=== PATIENT | female | born 1950 | race Caucasian/White ===

== ENCOUNTER → 2016-08-18 | Outpatient (CLI) | payer MEDICAID | END | disposition home or self-care (01) | LOC: CFH 12:50 | PROVIDERS: ATTEND Family Medicine | DX: Z12.31 Encounter for screening mammogram for malignant neoplasm of breast (principal); Z13.820 Encounter for screening for osteoporosis; Z78.0 Asymptomatic menopausal state; M85.80 Other specified disorders of bone density and structure, unspecified site | CPT/HCPCS: 77080; G0202 ==

== ENCOUNTER → 2016-08-25 | Outpatient (CLI) | payer MEDICAID | END | disposition home or self-care (01) | LOC: CFH 13:34 | DX: M43.16 Spondylolisthesis, lumbar region (principal); M48.06 Spinal stenosis, lumbar region | CPT/HCPCS: 72148 ==

== ENCOUNTER → 2016-09-24 | Outpatient (CLI) | payer MEDICAID ==
[~2016-09-24] MED LIST: DICL25TA PO; GABA300C10 PO; LISI2.5T PO
[2016-09-24 12:12] LABS: BLOOD UREA NITROGEN 28 mg/dL (7-18)
[2016-09-24 12:15] LABS: ASPARTATE AMINO TRANSFERASE 24 U/L (15-37)
== END | disposition home or self-care (01) ==
LOC: STAR 11:05
PROVIDERS: ATTEND Orthopaedic Surgery
DX: Z01.818 Encounter for other preprocedural examination (principal); M19.072 Primary osteoarthritis, left ankle and foot; M20.42 Other hammer toe(s) (acquired), left foot
CPT/HCPCS: 36415; 80053; 93005

== ENCOUNTER 2016-10-10 12:43 | Day surgery (SDC) | payer MEDICAID ==
[~2016-10-10] VITALS: Ht 152.4 cm; Wt 46.0 kg
[~2016-10-10 12:43] MED LIST changes: +CEFAZOLIN 1,000 MG ONE; +DEXAMETHASONE 4 MG/ML, 1ML ONE; +ONDANSETRON 2MG/ML, 2ML ONE; +PROPOFOL 10 MG/ML, 20ML ONE
[2016-10-10 13:50] VITALS: BP 145/84
[2016-10-10 13:54] VITALS: BP 145/84
[2016-10-10 14:00] LABS: DAU SCREEN DISCLAIMER
[2016-10-10] MEDS ORDERED: MIDAZOLAM 1 MG/ML, 2ML ONE (14:13)
[2016-10-10] MEDS ORDERED: FENTANYL PF 100 MCG/2ML ONE (14:13)
[2016-10-10] MEDS ORDERED: LACTATED RINGERS 1,000 ML IV SCH (14:18)
[2016-10-10] MEDS ORDERED: LIDOCAINE 1%, 2ML SQ PRN (14:30)
[2016-10-10] MEDS ORDERED: ROPIvacaine/PF 0.5%, 30 ML ONE (15:28)
[2016-10-10] MEDS ORDERED: ACETAMINOPHEN 325 MG TABLET PO PRN (17:30)
[2016-10-10] MEDS ORDERED: HYDROmorphone 1 MG/ML, 1ML IV PRN (17:30)
[2016-10-10] MEDS ORDERED: FENTANYL PF 100 MCG/2ML IV PRN (17:30)
[2016-10-10] MEDS ORDERED: PROMETHAZINE 25 MG/ML, 1ML IV PRN (17:30)
[2016-10-10] MEDS ORDERED: OXYcodone 5 MG/5 ML ORAL.SOL UDC PO PRN (17:30)
[2016-10-10] MEDS ORDERED: OXYcodone 5 MG/5 ML ORAL.SOL UDC ONE (18:04)
[2016-10-10] MEDS ORDERED: ACETAMINOPHEN 650 MG/20.3 ML UDC ONE (18:04)
== END 2016-10-10 20:00 ==
LOC: OUT 12:43
PROVIDERS: ATTEND Orthopaedic Surgery
DX: M20.42 Other hammer toe(s) (acquired), left foot (principal); M20.12 Hallux valgus (acquired), left foot; M77.42 Metatarsalgia, left foot; M24.575 Contracture, left foot; G89.29 Other chronic pain; I10 Essential (primary) hypertension; Z87.39 Personal history of other diseases of the musculoskeletal system and connective tissue; Z72.89 Other problems related to lifestyle
CPT/HCPCS: 28285; 28296; 28308; 28750; 73620; 76000; 80307; C1713; C1769; J0690; J1100; J2250; J2405; J2704; J2795; J3010; J7120

== ENCOUNTER 2016-10-20 17:46 | Emergency (ER) | payer MEDICAID ==
[~2016-10-20] VITALS: Ht 157.5 cm; Wt 50.0 kg
[~2016-10-20 17:46] MED LIST changes: -CEFAZOLIN 1,000 MG ONE; -DEXAMETHASONE 4 MG/ML, 1ML ONE; -ONDANSETRON 2MG/ML, 2ML ONE; -PROPOFOL 10 MG/ML, 20ML ONE
[2016-10-20] MEDS ORDERED: KETOROLAC 30 MG/1 ML IM ONE (18:00)
[2016-10-20] MEDS ORDERED: KETOROLAC 30 MG/1 ML ONE (18:07)
[2016-10-20] MEDS ORDERED: PLEASE ENTER HEIGHT AND WEIGHT MC SCH (18:30)
[2016-10-20 18:32] LABS: HEMATOCRIT 31.8 % (34.6-47.8); HEMOGLOBIN 10.6 g/dL (11.7-16.4); WHITE BLOOD COUNT 9.6 x10^3/uL (3.4-10)
[2016-10-20 18:45] LABS: BLOOD UREA NITROGEN 26 mg/dL (7-18)
[2016-10-20 18:51] LABS: IS PT STATUS REG ER OR PRE ER? YES
[2016-10-20 19:03] LABS: PATH.CAST-FLAG NOT PRESENT; SPERM-FLAG NOT PRESENT; SRC-FLAG NOT PRESENT; XTAL-FLAG NOT PRESENT; YLC-FLAG NOT PRESENT
[2016-10-20 20:10] VITALS: BP 114/72
[2016-10-21] MEDS ORDERED: OXYC-302 PO (04:20)
== END 2016-10-20 20:12 | disposition home or self-care (01) ==
LOC: ED 19:30
DX: R07.89 Other chest pain (principal); M54.5 Low back pain; I10 Essential (primary) hypertension; Z87.891 Personal history of nicotine dependence
CPT/HCPCS: 36415; 71010; 80048; 81001; 82040; 84484; 85025; 93005; 96372; 99285; J1885

== ENCOUNTER 2016-10-21 01:38 | Inpatient (IN) | payer MEDICAID ==
[~2016-10-21] VITALS: Ht 152.4 cm; Wt 59.0 kg
[2016-10-21] MEDS ORDERED: SODIUM CHLORIDE FLUSH 10ML SYR IVF ONE (02:00)
[2016-10-21] MEDS ORDERED: SODIUM CHLORIDE 0.9% 1,000ML IVBOLUS ONE ×2 (02:00→03:30)
[2016-10-21] MEDS ORDERED: OMNIPAQUE 350 MG/ML, 100ML BOTTLE ONE (02:23)
[2016-10-21] MEDS ORDERED: LEVOFLOXACIN/PMX 750MG/150ML 150 ML IV ONE (03:30)
[2016-10-21] MEDS ORDERED: METRONIDAZOLE PMX 500MG/100ML 100 ML IV ONE (03:30)
[2016-10-21] MEDS ORDERED: METRONIDAZOLE PMX 500MG/100ML 100 ML ONE (04:13)
[2016-10-21] MEDS ORDERED: OXYC-302 PO (04:20)
[2016-10-21 04:43] LABS: HEMATOCRIT 32.2 % (34.6-47.8); HEMOGLOBIN 10.6 g/dL (11.7-16.4)
[2016-10-21 04:45] LABS: BLOOD UREA NITROGEN 38 mg/dL (7-18)
[2016-10-21 05:00] VITALS: BP 127/78
[2016-10-21] MEDS ORDERED: ZOLPIDEM 5MG TABLET PO PRN (05:00)
[2016-10-21] MEDS ORDERED: BISACODYL 10 MG SUPP PR PRN (05:00)
[2016-10-21] MEDS ORDERED: MAGNESIUM CITRATE 300ML ORAL SOL PO ONE (05:00)
[2016-10-21] MEDS: LACTOBACILLUS CHEW TABLET PO SCH ×4 (05:30→21:11)
[2016-10-21] MEDS: SODIUM CHLORIDE 0.9% 1,000 ML IV SCH ×2 (06:44→18:16)
[2016-10-21] MEDS: CEFTRIAXONE PMX 1GM/50ML 50 ML IV SCH (06:45)
[2016-10-21 07:55] VITALS: BP 137/68
[2016-10-21] MEDS: morphine SULFATE 10 MG/ML, 1ML IVPush PRN ×3 (08:00→21:13)
[2016-10-21] MEDS: METHYLNALTREXONE 12 MG/0.6 ML SQ SCH ×2 (09:00→15:46)
[2016-10-21] MEDS: DOCUSATE 100 MG CAPSULE PO SCH ×2 (11:39→21:00)
[2016-10-21] MEDS: POLYETHYLENE GLYCOL 17 GM PACKET PO SCH (11:40)
[2016-10-21] MEDS: HEPARIN 5,000 UNITS/ML, 1ML SQ SCH ×2 (11:41→20:15)
[2016-10-21] MEDS: METRONIDAZOLE PMX 500MG/100ML 100 ML IV SCH ×2 (11:47→20:15)
[2016-10-21] MEDS ORDERED: OXYcodone/APAP 5/325MG TABLET PO SCH (12:30)
[2016-10-21] MEDS: OXYcodone IR 5MG TABLET PO PRN ×2 (13:42→18:15)
[2016-10-21 14:07] VITALS: BP 109/66
[2016-10-21 20:07] VITALS: BP 115/67
[2016-10-21] MEDS: OXYcodone/APAP 5/325MG TABLET PO PRN (22:49)
[2016-10-22 00:53] VITALS: BP 127/67
[2016-10-22] MEDS: morphine SULFATE 10 MG/ML, 1ML IVPush PRN ×3 (01:33→02:08)
[2016-10-22] MEDS: HEPARIN 5,000 UNITS/ML, 1ML SQ SCH ×3 (03:59→20:37)
[2016-10-22] MEDS: SODIUM CHLORIDE 0.9% 1,000 ML IV SCH ×2 (03:59→17:16)
[2016-10-22] MEDS: METRONIDAZOLE PMX 500MG/100ML 100 ML IV SCH ×3 (03:59→19:56)
[2016-10-22] MEDS: OXYcodone/APAP 5/325MG TABLET PO PRN ×5 (04:03→23:41)
[2016-10-22 06:04] LABS: HEMATOCRIT 24.6 % (34.6-47.8); HEMOGLOBIN 8.4 g/dL (11.7-16.4); WHITE BLOOD COUNT 11.8 x10^3/uL (3.4-10)
[2016-10-22 06:09] LABS: ASPARTATE AMINO TRANSFERASE 21 U/L (15-37); BLOOD UREA NITROGEN 17 mg/dL (7-18)
[2016-10-22 07:35] VITALS: BP 95/57
[2016-10-22] MEDS: CEFTRIAXONE PMX 1GM/50ML 50 ML IV SCH (08:07)
[2016-10-22] MEDS: DOCUSATE 100 MG CAPSULE PO SCH ×2 (08:08→20:35)
[2016-10-22] MEDS: POLYETHYLENE GLYCOL 17 GM PACKET PO SCH (08:08)
[2016-10-22] MEDS: LACTOBACILLUS CHEW TABLET PO SCH ×3 (08:08→20:37)
[2016-10-22] MEDS: ONDANSETRON 2MG/ML, 2ML IVPush PRN ×2 (09:47→17:25)
[2016-10-22 12:37] VITALS: BP 121/79
[2016-10-22 12:42] VITALS: BP 133/63
[2016-10-22 18:48] VITALS: BP 121/73
[2016-10-23 00:32] VITALS: BP 107/67
[2016-10-23] MEDS: SODIUM CHLORIDE 0.9% 1,000 ML IV SCH ×2 (03:00→13:00)
[2016-10-23] MEDS: OXYcodone/APAP 5/325MG TABLET PO PRN ×3 (03:30→15:11)
[2016-10-23] MEDS: METRONIDAZOLE PMX 500MG/100ML 100 ML IV SCH ×3 (04:00→20:24)
[2016-10-23] MEDS: HEPARIN 5,000 UNITS/ML, 1ML SQ SCH ×3 (04:00→20:24)
[2016-10-23] MEDS: ONDANSETRON 2MG/ML, 2ML IVPush PRN ×2 (04:10→10:19)
[2016-10-23 05:12] LABS: HEMATOCRIT 23.2 % (34.6-47.8); HEMOGLOBIN 7.6 g/dL (11.7-16.4); WHITE BLOOD COUNT 11.3 x10^3/uL (3.4-10)
[2016-10-23 05:29] LABS: BLOOD UREA NITROGEN 9 mg/dL (7-18)
[2016-10-23 07:24] VITALS: BP 122/76
[2016-10-23] MEDS: POLYETHYLENE GLYCOL 17 GM PACKET PO SCH (07:51)
[2016-10-23] MEDS: DOCUSATE 100 MG CAPSULE PO SCH ×2 (07:52→20:25)
[2016-10-23] MEDS: CEFTRIAXONE PMX 1GM/50ML 50 ML IV SCH (07:52)
[2016-10-23] MEDS: LACTOBACILLUS CHEW TABLET PO SCH ×3 (07:52→20:25)
[2016-10-23 14:12] VITALS: BP 131/75
[2016-10-23] MEDS ORDERED: PROMETHAZINE 25 MG/ML, 1ML IM PRN (16:00)
[2016-10-23] MEDS: METHYLNALTREXONE 12 MG/0.6 ML SQ SCH (20:24)
[2016-10-23 20:48] VITALS: BP 174/77
[2016-10-23] MEDS: morphine SULFATE 10 MG/ML, 1ML IVPush PRN (22:21)
[2016-10-24] MEDS: morphine SULFATE 10 MG/ML, 1ML IVPush PRN ×2 (02:29→11:54)
[2016-10-24 02:30] VITALS: BP 162/87
[2016-10-24] MEDS: SODIUM CHLORIDE 0.9% 1,000 ML IV SCH ×2 (04:13→15:00)
[2016-10-24] MEDS: METRONIDAZOLE PMX 500MG/100ML 100 ML IV SCH ×4 (04:13→22:54)
[2016-10-24] MEDS: HEPARIN 5,000 UNITS/ML, 1ML SQ SCH ×3 (04:13→20:36)
[2016-10-24 04:37] LABS: HEMATOCRIT 23.4 % (34.6-47.8); HEMOGLOBIN 7.9 g/dL (11.7-16.4); WHITE BLOOD COUNT 9.7 x10^3/uL (3.4-10)
[2016-10-24 04:48] LABS: BLOOD UREA NITROGEN 6 mg/dL (7-18)
[2016-10-24] MEDS: ONDANSETRON 2MG/ML, 2ML IVPush PRN (05:52)
[2016-10-24] MEDS ORDERED: POTASSIUM CHLORIDE 20 MEQ TAB.ER.PRT PO ONE (07:00)
[2016-10-24] MEDS ORDERED: POTASSIUM CHLORIDE 40 MEQ in SODIUM CHLORIDE 0.9% 500 ML IV ONE (07:30)
[2016-10-24 07:46] VITALS: BP 165/87
[2016-10-24] MEDS: LACTOBACILLUS CHEW TABLET PO SCH ×4 (08:25→20:36)
[2016-10-24] MEDS: DOCUSATE 100 MG CAPSULE PO SCH ×2 (08:25→20:36)
[2016-10-24] MEDS: POLYETHYLENE GLYCOL 17 GM PACKET PO SCH (08:25)
[2016-10-24] MEDS: CEFTRIAXONE PMX 1GM/50ML 50 ML IV SCH (08:25)
[2016-10-24] MEDS ORDERED: ONDANSETRON 2MG/ML, 2ML IVPush PRN (11:00)
[2016-10-24] MEDS: PANTOPRAZOLE 40 MG IV IVPush SCH ×2 (11:14→22:56)
[2016-10-24 14:14] LABS: FERRITIN 543.9 ng/mL (8-252)
[2016-10-24 14:34] VITALS: BP 152/72
[2016-10-24] MEDS ORDERED: MAGNESIUM SULFATE PMX 4GM/100M 100 ML IV ONE (16:30)
[2016-10-24 20:10] VITALS: BP 147/82
[2016-10-25 00:55] VITALS: BP 155/92
[2016-10-25] MEDS: SODIUM CHLORIDE 0.9% 1,000 ML IV SCH ×3 (04:08→19:17)
[2016-10-25] MEDS: HEPARIN 5,000 UNITS/ML, 1ML SQ SCH ×3 (04:16→20:57)
[2016-10-25 05:32] LABS: HEMATOCRIT 26.4 % (34.6-47.8); HEMOGLOBIN 8.9 g/dL (11.7-16.4); WHITE BLOOD COUNT 8.7 x10^3/uL (3.4-10)
[2016-10-25 05:55] LABS: BLOOD UREA NITROGEN 4 mg/dL (7-18)
[2016-10-25] MEDS: METRONIDAZOLE PMX 500MG/100ML 100 ML IV SCH ×3 (06:25→23:49)
[2016-10-25] MEDS: DOCUSATE 100 MG CAPSULE PO SCH ×2 (07:26→20:58)
[2016-10-25] MEDS: POLYETHYLENE GLYCOL 17 GM PACKET PO SCH ×2 (07:26→21:08)
[2016-10-25] MEDS: LACTOBACILLUS CHEW TABLET PO SCH ×3 (07:26→20:58)
[2016-10-25] MEDS: CEFTRIAXONE PMX 1GM/50ML 50 ML IV SCH (08:05)
[2016-10-25 08:09] VITALS: BP 145/77
[2016-10-25] MEDS ORDERED: FENTANYL PF 100 MCG/2ML ONE (08:39)
[2016-10-25] MEDS ORDERED: MIDAZOLAM 1 MG/ML, 5ML ONE (08:39)
[2016-10-25] MEDS: PANTOPRAZOLE 40 MG IV IVPush SCH ×2 (11:21→23:49)
[2016-10-25 14:21] VITALS: BP 138/82
[2016-10-25] MEDS: OXYcodone/APAP 5/325MG TABLET PO PRN ×2 (16:43→23:48)
[2016-10-25] MEDS: METHYLNALTREXONE 12 MG/0.6 ML SQ SCH (21:04)
[2016-10-25 22:00] VITALS: BP 174/85
[2016-10-26 03:26] VITALS: BP 124/71
[2016-10-26] MEDS: HEPARIN 5,000 UNITS/ML, 1ML SQ SCH ×2 (04:26→11:36)
[2016-10-26] MEDS: SODIUM CHLORIDE 0.9% 1,000 ML IV SCH (06:12)
[2016-10-26] MEDS: METRONIDAZOLE PMX 500MG/100ML 100 ML IV SCH ×2 (06:12→14:27)
[2016-10-26] MEDS: OXYcodone/APAP 5/325MG TABLET PO PRN ×2 (06:35→11:36)
[2016-10-26 07:42] VITALS: BP 152/92
[2016-10-26] MEDS: DOCUSATE 100 MG CAPSULE PO SCH (08:00)
[2016-10-26] MEDS: LACTOBACILLUS CHEW TABLET PO SCH (08:00)
[2016-10-26] MEDS: CEFTRIAXONE PMX 1GM/50ML 50 ML IV SCH (08:00)
[2016-10-26 09:21] LABS: OCCBLD OBC PASS
[2016-10-26] MEDS: PANTOPRAZOLE 40 MG IV IVPush SCH (10:34)
[2016-10-26] MEDS ORDERED: LORazepam 2 MG/ML, 1ML IVPush ONE (11:00)
[2016-10-26] MEDS ORDERED: PANT40TA3 PO (11:25)
[2016-10-26] MEDS ORDERED: METR500T PO (11:25)
[2016-10-26] MEDS ORDERED: HYDR-3240 PO (11:25)
[2016-10-26] MEDS ORDERED: CEFD300C37 PO (11:25)
[2016-10-26 14:15] VITALS: BP 135/75
== END 2016-10-26 14:54 | disposition home or self-care (01) | DRG 380 ==
LOC: ED 03:15 → EDIP 04:31 → 4NOR 05:24
PROC: 0DB48ZX Excision of Esophagogastric Junction, Via Natural or Artificial Opening Endoscopic, Diagnostic (ICD-10-PCS; 2016-10-25)
PROC: 0DB38ZX Excision of Lower Esophagus, Via Natural or Artificial Opening Endoscopic, Diagnostic (ICD-10-PCS; principal; 2016-10-25 09:00)
DX: K22.70 Barrett's esophagus without dysplasia (principal); N17.0 Acute kidney failure with tubular necrosis; E87.1 Hypo-osmolality and hyponatremia; K57.92 Diverticulitis of intestine, part unspecified, without perforation or abscess without bleeding; K22.2 Esophageal obstruction; K59.00 Constipation, unspecified; K52.9 Noninfective gastroenteritis and colitis, unspecified; D64.9 Anemia, unspecified; D69.6 Thrombocytopenia, unspecified; E86.0 Dehydration; I10 Essential (primary) hypertension; R13.10 Dysphagia, unspecified; K44.9 Diaphragmatic hernia without obstruction or gangrene; Z87.891 Personal history of nicotine dependence; Z79.891 Long term (current) use of opiate analgesic
CPT/HCPCS: 36415; 74000; 74177; 74249; 80048; 80053; 81003; 82272; 82728; 83540; 83550; 83605; 83690; 83735; 85025; 85610; 85730; 87040; 87324; 88305; 89055; 96361; 96374; 99152; 99153; J0696; J1644; J2250; J2405; J3010; J3480; Q9967; C9113; J2270; J3475; J7030; J7040

== ENCOUNTER → 2017-12-21 | Outpatient (CLI) | payer MEDICARE ==
[~2017-12-21] MED LIST changes: +ACET-1600 PO; +CEFD300C37 PO; +ESOM20CA PO; +HYDR-3240 PO; +LISI1TAB5 PO; +METR500T PO; +OXYC-302 PO; +PANT40TA3 PO; +PROM25TA10 PO
[2017-12-21 14:56] LABS: MICROSCOPIC NOT IND
== END | disposition home or self-care (01) ==
LOC: STAR 13:40
PROVIDERS: ATTEND Orthopaedic Surgery
DX: Z01.818 Encounter for other preprocedural examination (principal); M16.9 Osteoarthritis of hip, unspecified
CPT/HCPCS: 81003; 87081; 87086; 93005

== ENCOUNTER 2017-12-30 11:09 | Inpatient (IN) | payer MEDICARE ==
[~2017-12-30] VITALS: Ht 152.4 cm; Wt 58.6 kg
[2017-12-30] MEDS ORDERED: LACTATED RINGERS 1,000 ML IV SCH (13:26)
[2017-12-30] MEDS ORDERED: ACETAMINOPHEN 500 MG TABLET PO ONE (13:30)
[2017-12-30] MEDS ORDERED: GABAPENTIN 300 MG CAPSULE PO ONE (13:30)
[2017-12-30] MEDS ORDERED: OXYcodone IR 5MG TABLET PO ONE (13:30)
[2017-12-30] MEDS ORDERED: FENTANYL PF 250 MCG/5ML ONE (14:08)
[2017-12-30] MEDS ORDERED: TRANEXAMIC ACID 100 MG/ML, 10ML ONE (14:36)
[2017-12-30] MEDS ORDERED: BUPIVACAINE/PF 0.5% ONE (14:40)
[2017-12-30] MEDS ORDERED: KETOROLAC 60 MG/2 ML ONE (14:41)
[2017-12-30] MEDS ORDERED: BACITRACIN 50,000 UNIT ONE (14:41)
[2017-12-30] MEDS ORDERED: morphine SULFATE/PF 1 MG/ML, 10ML ONE (14:41)
[2017-12-30] MEDS ORDERED: SODIUM CHLORIDE 0.9% 100 ML ONE (14:55)
[2017-12-30] MEDS ORDERED: ROPIvacaine/PF 0.5%, 30 ML ONE (14:55)
[2017-12-30] MEDS ORDERED: LABETALOL 5MG/ML, 20ML IV PRN (15:00)
[2017-12-30] MEDS ORDERED: MEPERIDINE/PF 25MG/0.5ML IVPush PRN (15:00)
[2017-12-30] MEDS ORDERED: hydrALAzine 20 MG/ML, 1ML IV PRN (15:00)
[2017-12-30] MEDS ORDERED: PROCHLORPERAZINE 5 MG/ML, 2ML IV PRN (15:00)
[2017-12-30] MEDS ORDERED: DIPHENHYDRAMINE 50 MG/ML, 1ML IVPush PRN (15:00)
[2017-12-30] MEDS ORDERED: HYDROmorphone 1 MG/ML, 1ML IV PRN (15:00)
[2017-12-30] MEDS ORDERED: OXYcodone 5 MG/5 ML ORAL.SOL UDC PO PRN (15:00)
[2017-12-30] MEDS ORDERED: SUCCINYLCHOLINE 20 MG/ML, 10ML ONE (16:30)
[2017-12-30] MEDS ORDERED: NEOSTIGMINE 1 MG/ML, 10ML ONE (16:30)
[2017-12-30] MEDS ORDERED: GLYCOPYRROLATE 0.2MG/1ML, 5ML ONE (16:30)
[2017-12-30] MEDS ORDERED: DEXAMETHASONE 4 MG/ML, 1ML ONE (16:30)
[2017-12-30] MEDS ORDERED: ROCURONIUM 10MG/ML,5ML ONE (16:30)
[2017-12-30] MEDS ORDERED: CEFAZOLIN 1,000 MG ONE (16:30)
[2017-12-30] MEDS ORDERED: PROPOFOL 10 MG/ML, 20ML ONE (16:30)
[2017-12-30] MEDS ORDERED: ONDANSETRON 2MG/ML, 2ML ONE (16:30)
[2017-12-30] MEDS ORDERED: FENTANYL PF 100 MCG/2ML ONE (17:16)
[2017-12-30] MEDS ORDERED: OXYcodone 5 MG/5 ML ORAL.SOL UDC ONE (17:17)
[2017-12-30] MEDS: FENTANYL PF 100 MCG/2ML IV PRN ×2 (17:29→17:41)
[2017-12-30] MEDS ORDERED: HYDROmorphone 2 MG/ML, 1ML ONE (17:51)
[2017-12-30] MEDS ORDERED: PROCHLORPERAZINE 5 MG/ML, 2ML ONE (17:51)
[2017-12-30 19:15] VITALS: BP 107/56
[2017-12-30] MEDS ORDERED: HYDROcodone/APAP 10/325 MG TABLET PO PRN (20:00)
[2017-12-30] MEDS: POTASSIUM CHLORIDE 20 MEQ in D5%-0.45% NACL 1,000 ML IV SCH (23:14)
[2017-12-30] MEDS: OXYcodone/APAP 5/325MG TABLET PO PRN (23:14)
[2017-12-30] MEDS: CEFAZOLIN PMX 2GM/100ML 100 ML IVPB SCH (23:14)
[2017-12-30] MEDS: SODIUM CHLORIDE FLUSH 10ML SYR IVF SCH (23:16)
[2017-12-30 23:29] VITALS: BP 125/62
[2017-12-31 02:54] VITALS: BP 106/60
[2017-12-31] MEDS: POTASSIUM CHLORIDE 20 MEQ in D5%-0.45% NACL 1,000 ML IV SCH ×2 (06:06→21:23)
[2017-12-31 07:22] VITALS: BP 102/58
[2017-12-31] MEDS: OXYcodone/APAP 5/325MG TABLET PO PRN ×3 (08:11→21:22)
[2017-12-31] MEDS: CEFAZOLIN PMX 2GM/100ML 100 ML IVPB SCH (08:12)
[2017-12-31] MEDS: ASPIRIN 325 MG TABLET EC PO SCH ×2 (10:35→21:22)
[2017-12-31] MEDS: SODIUM CHLORIDE FLUSH 10ML SYR IVF SCH ×2 (10:36→21:23)
[2017-12-31 12:31] VITALS: BP 110/64
[2017-12-31] MEDS: morphine SULFATE 10 MG/ML, 1ML IV PRN (15:51)
[2017-12-31 19:39] VITALS: BP 105/61
[2018-01-01 00:44] VITALS: BP 121/70
[2018-01-01] MEDS: OXYcodone/APAP 5/325MG TABLET PO PRN ×3 (04:19→14:35)
[2018-01-01] MEDS: morphine SULFATE 10 MG/ML, 1ML IV PRN (04:19)
[2018-01-01] MEDS: POTASSIUM CHLORIDE 20 MEQ in D5%-0.45% NACL 1,000 ML IV SCH (08:06)
[2018-01-01] MEDS: ASPIRIN 325 MG TABLET EC PO SCH (08:46)
[2018-01-01] MEDS: SODIUM CHLORIDE FLUSH 10ML SYR IVF SCH (08:48)
[2018-01-01 09:07] VITALS: BP 121/65
[2018-01-01 13:14] VITALS: BP 115/67
[2018-01-01] MEDS ORDERED: ASPI-650 PO ×2 (13:26→13:27)
== END 2018-01-01 16:30 | disposition home or self-care (01) | DRG 470 ==
LOC: ORIP 13:16 → 4NOR 18:45 → DCLOUNGE 01-01 16:09
PROVIDERS: ADMIT Orthopaedic Surgery; ATTEND Orthopaedic Surgery
PROC: 0SR903Z Replacement of Right Hip Joint with Ceramic Synthetic Substitute, Open Approach (ICD-10-PCS; principal; 2017-12-31)
DX: M16.11 Unilateral primary osteoarthritis, right hip (principal); I10 Essential (primary) hypertension; K21.9 Gastro-esophageal reflux disease without esophagitis
CPT/HCPCS: 36415; 86850; 86900; C1713; G0378; J0690; J1100; J1885; J2274; J2405; J2704; J2710; J2795; J3010; J3480; J3490; C1776; J0330; J0780; J2270; J7120

== ENCOUNTER → 2019-01-28 | Outpatient (CLI) | payer MEDICARE ==
[~2019-01-28] MED LIST changes: +ASPI-496 PO; +ASPI-650 PO; +ATOR80TA PO; +CLOP75TA52 PO; +LISI1TAB19 PO; -LISI1TAB5 PO
[2019-01-28 12:06] LABS: BASOPHILS # (AUTO) 0.03 x10^3/uL (0-0.1); BASOPHILS % (AUTO) 1 % (0-1); EOSINOPHILS # (AUTO) 0.28 x10^3/uL (0-0.4); EOSINOPHILS % (AUTO) 5 % (1-7); LYMPHOCYTES # (AUTO) 1.48 x10^3/uL (1-3.4); LYMPHOCYTES % (AUTO) 28 % (22-44); MD NO; MEAN CORPUSCULAR HEMOGLOBIN 30.5 pg (27.0-34.8); MEAN CORPUSCULAR HGB CONC 33.3 g/dL (32.4-35.8); MEAN CORPUSCULAR VOLUME 91.5 fL (80-100); MEAN PLATELET VOLUME 8.8 fL (7.4-10.4); MONOCYTES # (AUTO) 0.47 x10^3/uL (0.2-0.8); MONOCYTES % (AUTO) 9 % (2-9); NEUTROPHILS # (AUTO) 3.01 x10^3/uL (1.8-6.8); NEUTROPHILS % (AUTO) 57 % (42-75); PLATELET COUNT 303 x10^3/uL (130-400); RED BLOOD COUNT 4.07 x10^6/uL (3.82-5.3); RED CELL DISTRIBUTION WIDTH 13.3 % (9.6-15.2)
[2019-01-28 12:16] LABS: ANION GAP 5 mmol/L (5-15); CALCIUM 9.3 mg/dL (8.5-10.1); CHLORIDE 109 mmol/L (98-107)
[2019-01-28 12:24] LABS: ALANINE AMINOTRANSFERASE 20 U/L (12-78); ALKALINE PHOSPHATASE 101 U/L (45-117); BILIRUBIN,TOTAL 0.4 mg/dL (0.2-1.0); CREATININE 0.69 mg/dL (0.55-1.02); TOTAL PROTEIN 7.9 g/dL (6.4-8.2)
== END | disposition home or self-care (01) ==
LOC: STAR 10:57
PROVIDERS: ATTEND Surgery
DX: Z01.818 Encounter for other preprocedural examination (principal); J98.4 Other disorders of lung; K44.9 Diaphragmatic hernia without obstruction or gangrene; I65.21 Occlusion and stenosis of right carotid artery; I11.9 Hypertensive heart disease without heart failure; Z87.891 Personal history of nicotine dependence
CPT/HCPCS: 36415; 71046; 80053; 85025; 93005

== ENCOUNTER 2020-07-06 11:37 | Emergency (ER) | payer MEDICARE ==
[~2020-07-06] VITALS: Ht 152.4 cm; Wt 55.0 kg
[~2020-07-06 11:37] MED LIST changes: +ASPI-1026 PO; -ASPI-650 PO; +HYDR-2214 PO; -HYDR-3240 PO; -LISI1TAB19 PO; +LISI1TAB39 PO; -OXYC-302 PO; +OXYC1TAB14 PO
--- NOTE | 2020-07-06 11:48 | NUR ---
PT ALERT AND ORIENTED TIMES FOUR. PT STATES SHE IS HERE BECAUSE SHE DRANK TOO MUCH AND HER AND HER SON WERE ARGUING. PER MEDICS THE SON AND SHE LIVE IN A SMALL STUDIO APARTMENT. SON CONCERNED BECAUSE HE HAS NOT SEEN HER THIS BAD BEFORE. PT TOLD MEDICS THAT SHE FEELS LIKE SHE IS BEING TAKEN ADVANTAGE OF BY PARAMEDICS. PT STATES THAT SHE HAS NOT BEEN TAKING HER MEDS. STATES SHE DOES NOT RECALL FALLING. LEFT SIDED WEAKNESS THAT PER PT IS FROM A PREVIOUS STROKE. PT COOPERATIVE, LAUGHING AND APOLOGIZING FOR BEING LOUD. PT ARRIVED IN C-COLLAR BECAUSE SON STATES MULTIPLE FALLS AND PT UNABLE TO TELL IF NECK HURTS.
--- NOTE | 2020-07-06 13:02 | NUR ---
PT TOOK C-COLLAR OFF AND WILL NOT WEAR IT. AWARE. PT TO HAVE BLOODWORK AND CT. WILL CONTINUE TO MONITOR.
[2020-07-06 13:15] LABS: BASOPHILS % (AUTO) 2 % (0-1); EOSINOPHILS % (AUTO) 4 % (1-7); LYMPHOCYTES % (AUTO) 35 % (22-44); MEAN CORPUSCULAR HEMOGLOBIN 31.4 pg (27.0-34.8); MEAN CORPUSCULAR HGB CONC 33.9 g/dL (32.4-35.8); MEAN PLATELET VOLUME 7.7 fL (7.4-10.4); MONOCYTES % (AUTO) 9 % (2-9); NEUTROPHILS % (AUTO) 51 % (42-75); PLATELET COUNT 364 x10^3/uL (130-400); RED BLOOD COUNT 3.89 x10^6/uL (3.82-5.3); RED CELL DISTRIBUTION WIDTH 13.3 % (9.6-15.2)
[2020-07-06 13:16] LABS: MD NO
[2020-07-06 13:27] LABS: ALBUMIN 3.5 g/dL (3.4-5.0); ANION GAP 9 mmol/L (5-15); CALCIUM 8.6 mg/dL (8.5-10.1); CHLORIDE 112 mmol/L (98-107); CREATININE 0.69 mg/dL (0.55-1.02)
--- NOTE | 2020-07-06 14:02 | NUR ---
bREAK RN- PT TO CT
--- NOTE | 2020-07-06 15:04 | NUR ---
IN ANTICIPATION OF DISCHARGE, CALLED PT'S HOME NUMBER ATTEMPTING TO GET AHOLD OF SON AND LEFT MESSAGE. PT STATES SHE IS NON AMBULATORY, REQUIRING A WHEELCHAIR BECAUSE OF LEFT SIDED DEFICITS RELATED TO PREVIOUS STROKE. ADDITIONALLY PT STATES SHE DOES NOT HAVE A [employer] TO APARTMENT BUT THAT IT IS ALWAYS UNLOCKED. SPOKE WITH DIRECTOR OF [employer] AND AWAITING ASSISTANCE FROM HER
--- NOTE | 2020-07-06 15:45 | NUR ---
BEAN PICKER AT BEDSIDE.
--- NOTE | 2020-07-06 16:31 | NUR ---
AWAITING SON TO ARRIVE BY [facility] WITH WHEELCHAIR
--- NOTE | 2020-07-06 17:11 | NUR ---
SON ARRIVED WITH WHEELCHAIR. PT UOB TO W/C AND TO DISCHARGE WINDOW. PROVIDED [facility] VOUCHER AND SON WAITING OUT IN LOBBY.
[2020-07-06 17:12] VITALS: BP 176/84
== END 2020-07-06 17:15 | disposition home or self-care (01) ==
LOC: ED 13:59
DX: F10.220 Alcohol dependence with intoxication, uncomplicated (principal); I10 Essential (primary) hypertension; Z86.73 Personal history of transient ischemic attack (TIA), and cerebral infarction without residual deficits; Z87.891 Personal history of nicotine dependence; W01.0XXA Fall on same level from slipping, tripping and stumbling without subsequent striking against object, initial encounter; Y93.89 Activity, other specified; Y92.89 Other specified places as the place of occurrence of the external cause; Y99.8 Other external cause status
CPT/HCPCS: 36415; 70450; 80048; 80320; 82040; 85025; 99284; G0480